=== PATIENT | female | born 1975 | race Hispanic/Latino ===

== ENCOUNTER 2022-05-05 10:00 | Day surgery (SDC) | payer OTHER ==
[2022-05-05] VITALS (10 sets, daily range): BP systolic 103–135; BP diastolic 50–91
[~2022-05-05 10:00] MED LIST: 0.9%NACL 1000ML 1,000 ML IV ONE
[2022-05-05] MEDS ORDERED: PROPOFOL 10 MG/ML 20ML VIAL IV ONE (13:55)
[2022-05-05] MEDS ORDERED: ROSU10TA28 PO (15:01)
[2022-05-05] MEDS ORDERED: DIOVAN PO (15:01)
[2022-05-05] MEDS ORDERED: OMEG1CAP31 PO (15:01)
[2022-05-05] MEDS ORDERED: METF-444 PO (15:01)
[2022-05-05] MEDS ORDERED: NPH,100V11 SQ (15:01)
[2022-05-05] MEDS ORDERED: FERS325 PO (15:01)
[2022-05-05] MEDS ORDERED: OMEP20CA12 PO (15:01)
[2022-05-05] MEDS ORDERED: SITA100T12 PO (15:01)
[2022-05-05] MEDS ORDERED: GABA-529 PO (15:01)
== END 2022-05-05 15:15 | disposition home or self-care (01) ==
LOC: DAH 10:00
PROVIDERS: ATTEND Internal Medicine Gastroenterology
DX: R10.13 Epigastric pain (principal); Z20.822 Contact with and (suspected) exposure to COVID-19; K21.00 Gastro-esophageal reflux disease with esophagitis, without bleeding; K29.50 Unspecified chronic gastritis without bleeding; K59.00 Constipation, unspecified; K22.70 Barrett's esophagus without dysplasia; K31.89 Other diseases of stomach and duodenum; E78.5 Hyperlipidemia, unspecified; E11.9 Type 2 diabetes mellitus without complications; Z79.899 Other long term (current) drug therapy; Z98.891 History of uterine scar from previous surgery; Z82.49 Family history of ischemic heart disease and other diseases of the circulatory system; Z83.3 Family history of diabetes mellitus; Z83.438 Family history of other disorder of lipoprotein metabolism and other lipidemia
CPT/HCPCS: 87635; 43239; 84703; 82948; 36415; 88305; 88342; C9803; J7030 ×2; J3490; A4620; A4215 ×2; A4223; A4222; A4221; A4663; A4606; J2704

== ENCOUNTER 2022-05-06 09:51 | Day surgery (SDC) | payer OTHER ==
[2022-05-06] VITALS (7 sets, daily range): BP systolic 91–130; BP diastolic 52–74
[~2022-05-06] VITALS: Ht 154.9 cm; Wt 75.3 kg
[~2022-05-06 09:51] MED LIST changes: -0.9%NACL 1000ML 1,000 ML IV ONE; +DIOVAN PO; +FERS325 PO; +GABA-529 PO; +METF-444 PO; +NPH,100V11 SQ; +OMEG1CAP31 PO; +OMEP20CA12 PO; +ROSU10TA28 PO; +SITA100T12 PO
[2022-05-06] MEDS ORDERED: 0.9%NACL 1000ML 1,000 ML IV ONE (11:13)
== END 2022-05-06 14:05 | disposition home or self-care (01) ==
LOC: DAH 09:51 → EDSTATUS 10:20 → DAH 14:05
PROVIDERS: ATTEND Internal Medicine Gastroenterology
DX: K59.00 Constipation, unspecified (principal); Z20.822 Contact with and (suspected) exposure to COVID-19; K64.0 First degree hemorrhoids; E11.9 Type 2 diabetes mellitus without complications; E78.5 Hyperlipidemia, unspecified; K21.9 Gastro-esophageal reflux disease without esophagitis; Z87.442 Personal history of urinary calculi; Z86.16 Personal history of COVID-19; Z98.891 History of uterine scar from previous surgery; Z82.49 Family history of ischemic heart disease and other diseases of the circulatory system; Z83.3 Family history of diabetes mellitus; Z82.5 Family history of asthma and other chronic lower respiratory diseases; Z86.010 Personal history of colon polyps; Z79.84 Long term (current) use of oral hypoglycemic drugs; Z79.899 Other long term (current) drug therapy
CPT/HCPCS: 45378; J7030 ×2; A4620; A4215 ×2; A4223; A4222; A4221; A4663; A4216; A4606